=== PATIENT | female | born 1985 | race Two or more races ===

== ENCOUNTER 2020-05-29 15:24 | Outpatient (REF) | payer OTHER, SELFPAY | END 2020-05-29 15:25 | disposition home or self-care (01) | LOC: HO.LAB 15:24 | PROVIDERS: PCP Internal Medicine; Visit Provider Internal Medicine | DX: Z20.828 Contact with and (suspected) exposure to other viral communicable diseases (principal) | CPT/HCPCS: 36415; 87635 ==

== ENCOUNTER 2020-07-07 10:34 | Outpatient (RCR) | payer OTHER, SELFPAY | END 2020-07-16 14:54 | disposition home or self-care (01) | LOC: HO.WCC 10:34 | PROVIDERS: PCP Internal Medicine; Visit Provider Surgery | DX: T81.31XD Disruption of external operation (surgical) wound, not elsewhere classified, subsequent encounter (principal); Z87.891 Personal history of nicotine dependence | CPT/HCPCS: 99204 ==

== ENCOUNTER 2023-06-15 08:35 | Emergency (ER) | payer OTHER, SELFPAY ==
[2023-06-15 08:38] VITALS: BP 121/84; PULSE 85; RESP 18; TEMP 36.2; O2SAT 99; BMI 34.0
[2023-06-15 08:56] LABS: MANUAL DIFF FLAG NO
[2023-06-15 08:57] LABS: Basophils Absolute Auto 0.1 X10*3/uL (0.0-0.2); Basophils Percent Auto 0.7 % (0-2); Eosinophils Absolute Auto 0.3 X10*3/uL (0.0-0.4); Eosinophils Percent Auto 3.6 % (0-4); Hematocrit 42.4 % (37.0-47.0); Hemoglobin 14.1 g/dl (12.0-16.0); Imm Gran Pct Auto 1.1 % (0.0-0.4); Mean Corpuscular HGB Conc 33.3 g/dl (31.0-35.0); Mean Corpuscular Hemoglobin 31.6 pg (27.0-33.0); Mean Corpuscular Volume 95.1 fL (80.0-98.0); Mean Platelet Volume 9.2 fL (9.4-12.3); Monocytes Absolute Auto 0.7 X10*3/uL (0.1-1.2); Monocytes Percent Auto 8.1 % (2-11); Neutrophils Absolute Auto 5.9 x10*3/uL (2.0-8.3); Neutrophils Percent Auto 64.5 % (45-73); Platelet Count 334 X10*3/uL (160-400); Red Blood Count 4.46 X10*6/uL (4.20-5.50); Red Cell Distribution Width 13.8 % (11.0-16.0); White Blood Count 9.2 X10*3/uL (4.8-10.8)
[2023-06-15 09:16] LABS: Alanine Aminotransferase 22 U/L (0-31); Albumin Level 4.1 g/dL (3.5-5.0); Alkaline Phosphatase 77 U/L (39-117); Anion Gap 15 (12-20); Aspartate Amino Transferase 20 U/L (5-31); Bilirubin Total 0.3 mg/dL (0.0-1.0); Blood Urea Nitrogen 10 mg/dL (9-16); Calcium 9.5 mg/dL (8.4-10.2); Carbon Dioxide 21 mmol/L (22-29); Chloride 107 mmol/L (96-108); Creatinine Clr Calc Pharmacy 92.7; Estimated Glomerular Filt Rate > 60; Glucose Random 121 mg/dL (60-115); Potassium 4.3 mmol/L (3.3-5.1); Sodium 139 mmol/L (135-145); Total Protein 7.3 g/dL (6.5-8.0)
[2023-06-15 09:20] LABS: HCG Quantitative < 2 mIU/mL
[2023-06-15 10:13] VITALS: BP 110/66; PULSE 73; RESP 18; TEMP 36.8; O2SAT 99
--- NOTE | 2023-06-15 10:19 | ED.FEMALEGU ---
HPI - Female Genitourinary General Chief complaint: Vaginal Bleeding Stated complaint: vaginal bleeding Time Seen by Provider: 06/15/23 09:05 Source: patient Mode of arrival: ambulatory Limitations: no limitations History of Present Illness HPI Narrative: 37-year-old female who presents emergency department for evaluation of vaginal bleeding, lower abdominal pain and possible STD exposure. The patient states that she has not had a menstrual period in 5-6 years since she stop receiving Depo Provera-her periods never returned. She states that she had sex 3 days ago and the condom broke. She states that she has noticed vaginal spotting which she describes as red blood clots. Patient also is complaining of lower abdominal pain, she has not noticed a vaginal discharge she denied fever, chills. She has had nausea and vomiting but no diarrhea. She has had urinary frequency but no dysuria. Related Data Previous Rx's Medication Instructions Recorded acetaminophen 500 mg tablet 1,000 mg (2 x 500 mg) PO Q6H PRN 06/15/23 (Tylenol Extra Strength) fever or pain #20 tabs doxycycline hyclate 100 mg tablet 100 mg PO Q12H 14 days #28 tabs 06/15/23 ibuprofen 400 mg tablet 400 mg PO TID PRN fever or pain 06/15/23 #30 tabs metronidazole 500 mg tablet 500 mg PO Q12H 14 days #28 tabs 06/15/23 Allergies Allergy/AdvReac Type Severity Reaction Status Date / Time No Known Allergies Allergy Unverified 05/15/20 17:59 [No Known Allergies*] Review of Systems Review of Systems: Yes all other systems are reviewed and are negative FOR[facility]LY [facility], [facility]1983 Past Medical History FORMERLY [facility], [facility]–1983 Narrative: Past medical history: None. Surgical history: Breast implants, hemorrhoidectomy 3 months prior, ?tummy tuck ?. Social history: She does smoke cigarettes, she occasionally drinks alcohol, she does smoke marijuana. Medical History Acute hemorrhoid Hernia Kidney stones Social History Social History Alcohol intake: current Smoked in Last 30 Days: Yes Use of substances other than those prescribed or required for medical reasons: Yes Substance Use Type: Marijuana Substance Use Frequency: Occasionally Advance Directives: No Advance Directives Information Provided: No Physical Exam Vital Signs: Vital Signs: Last Vital Signs Temp 98.4 F 06/15/23 11:41 Pulse 82 06/15/23 11:41 Resp 18 06/15/23 11:41 BP 120/78 06/15/23 11:41 Pulse Ox 98 06/15/23 11:41 O2 Del Method Room Air 06/15/23 11:41 BMI result Body Mass Index 34.0 Vital signs were normal Exam: General: Awake, alert in no distress Head: Normocephalic, atraumatic EENT: PERRL, Lids normal, sclera normal, conjunctiva normal, nose normal , ears normal, throat without erythema or exudates Neck: Supple, no adenopathy, trachea midline and nontender Lung: breath sounds symmetric, no wheezing, rales or rhonchi Chest: symmetric movement, nontender Heart: regular rate and rhythm, normal S1, S2 no murmurs or rubs Abdomen: soft, non-tender, nondistended, normal bowel sounds Pelvic: Normal external vaginal exam, speculum exam revealed a thick whitish vaginal and cervical discharge, cervical os is closed, patient has moderate cervical motion tenderness and mild to moderate suprapubic and adnexal tenderness with palpation . There is no blood seen in the vagina or coming from the cervical os Back: no vertebral tenderness, no CVAT Extremities: no deformities, moves all extremities symmetrically Skin: no rashes, no lesion, normal color and warmth Neuro: Awake, alert, oriented, normal speech, cranial nerves intact, moves all extremities symmetrically Psych: Pleasant, cooperative Medications Administered Discontinued Medications Generic Name Dose Route Start Last Admin Trade Name Александрq PRN Reason Stop Dose Admin Ceftriaxone Sodium 500 mg/ 0 mg 06/15/23 11:14 06/15/23 11:40 Lidocaine HCl 1 ml IM 06/15/23 11:15 1 kit ONCE ONE Administration Medical Decision Making Medical Decision Making MDM Narrative: 37-year-old female with no significant past medical history use had no menses for 5-6 year presents emergency department for evaluation of vaginal spotting, vaginal discharge, nausea, vomiting and frequency, after having intercourse 3 days prior where the condom broke. Patient's vital signs were normal. Exam did reveal a vaginal and cervical discharge as well as significant cervical motion tenderness, adnexal and suprapubic tenderness. Following evaluation was ordered: CBC, BMP, urinalysis, quantitative beta-hCG, chlamydia/gonorrhea, Trichomonas, BV panel. 10:24 The patient's pelvic examination is consistent with pelvic inflammatory disease. Laboratory evaluation was unremarkable, quantitative beta-hCG was negative-the patient is not . Patient will be treated for pelvic inflammatory disease with ceftriaxone 500 mg IM mixed with lidocaine, doxycycline 100 mg q.12 hours times 14 days and Flagyl 500 mg q.12 hours times 14 days Patient was also given prescriptions for Tylenol and ibuprofen for pain. 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 She was given printed and verbal instructions and discharged home. Differential Diagnosis Differential Diagnoses: The differential diagnosis associated with the presentation includes Differential diagnosis includes was not limited to STD exposure, cervicitis, pelvic inflammatory disease, dysfunctional vaginal bleeding, urinary tract infection Lab Data MDM Lab Attestation statement: I reviewed the patient's lab results. My interpretation patient's laboratory evaluation as follows: CBC was normal. CMP revealed an elevated glucose of 121, LFTs were normal, quantitative beta hCG was below detectable limits. Patient's urinalysis positive for blood, microscopic revealed 0-2 RBCs, 0-5 WBCs, no bacteria 06/15/23 08:50 06/15/23 08:50 Labs: Lab Results 06/15/23 06/15/23 Range/Units 08:50 10:36 WBC 9.2 (4.8-10.8) X10*3/uL RBC 4.46 (4.20-5.50) X10*6/uL Hgb 14.1 (12.0-16.0) g/dl Hct 42.4 (37.0-47.0) % MCV 95.1 (80.0-98.0) fL MCH 31.6 (27.0-33.0) pg MCHC 33.3 (31.0-35.0) g/dl RDW 13.8 (11.0-16.0) % Plt Count 334 (160-400) X10*3/uL MPV 9.2 L (9.4-12.3) fL Immature Gran % (Auto) 1.1 H (0.0-0.4) % Neut % (Auto) 64.5 (45-73) % Lymph % (Auto) 22.0 (20-40) % [place] % (Auto) 8.1 (2-11) % Eos % (Auto) 3.6 (0-4) % Baso % (Auto) 0.7 (0-2) % Lymph # (Auto) 2.0 (1.2-4.9) X10*3/uL [place] # (Auto) 0.7 (0.1-1.2) X10*3/uL Eos # (Auto) 0.3 (0.0-0.4) X10*3/uL Baso # (Auto) 0.1 (0.0-0.2) X10*3/uL Abs Immat Gran (auto) 0.10 H (0.00-0.03) X10*3/uL Absolute Neuts (auto) 5.9 (2.0-8.3) x10*3/uL Absolute Nucleated RBC 0.000 (0.0-0.012) X10*3/uL Nucleated RBC % (auto) 0.0 (0.0-0.2) /100WBC Sodium 139 (135-145) mmol/L Potassium 4.3 (3.3-5.1) mmol/L Chloride 107 (96-108) mmol/L Carbon Dioxide 21 L (22-29) mmol/L Anion Gap 15 (12-20) BUN 10 (9-16) mg/dL Creatinine 0.82 (0.5-1.4) mg/dL Estim Creat Clear Calc 92.7 Estimated GFR > 60 Random Glucose 121 H (60-115) mg/dL Calcium 9.5 (8.4-10.2) mg/dL Total Bilirubin 0.3 (0.0-1.0) mg/dL AST 20 (5-31) U/L ALT 22 (0-31) U/L Alkaline Phosphatase 77 (39-117) U/L Total Protein 7.3 (6.5-8.0) g/dL Albumin 4.1 (3.5-5.0) g/dL Beta HCG, Quant < 2 mIU/mL Urine Color Yellow Urine Appearance Clear Urine pH 6.5 (5.0-9.0) Ur Specific [place] <= 1.005 (1.005-1.025) Urine Protein Negative (Neg-Trace) mg/dL Urine Glucose (UA) Negative (Negative) mg/dL Urine Ketones Negative (Negative) mg/dL Urine Blood Small (1+) H (Negative) Urine Nitrite Negative (Negative) Ur Leukocyte Esterase Negative (Negative) Urine RBC 0-2 (0-2) /HPF Urine WBC 0-5 (0-5) /HPF Ur Squamous Epith Cells 0-2 (0-2) /HPF Urine Bacteria None Seen (None Seen) Hyaline Casts 0-2 (0-2) /LPF Prescription Management I considered prescription management with: Pain Medication and Antibiotic Discharge Plan Discharge Clinical Impression: Vaginal bleeding, Acute pelvic inflammatory disease Patient Disposition: Home, Self-Care Additional Instructions: Pelvic inflammatory disease instructions: Your presentation and physical findings are consistent with pelvic inflammatory disease (PID). Approximately 30% of the time, pelvic inflammatory disease is caused by sexually transmitted diseases such as Trichomonas, gonorrhea or chlamydia. Approximately 70% of the time, pelvic inflammatory disease is caused by abnormal bacteria (anaerobic bacteria) in your vagina that can cause an infection Medications You received ceftriaxone 500 mg intramuscularly here in the emergency department Take doxycycline 100 mg, 1 pill twice a day for 14 days. Take metronidazole 500 mg, 1 pill twice a day for 14 days. These 3 antibiotics treat sexually transmitted diseases such as gonorrhea, chlamydia and Trichomonas as well as anaerobic bacteria that can cause pelvic inflammatory disease. Take ibuprofen 400 mg pills, 1 pills every 6 hours as needed for pain. Take Tylenol (acetaminophen) 500 mg pills, 2 pills every 4 to 6 hours as needed for pain. Follow-Up Follow-up with your gynecology in 10-14 days. Pending laboratory tests: The doctor that follows up will need to review the following results with you: Bacterial vaginosis testing Gonorrhea and chlamydia (cervical swab) Trichomonas testing You can also check these results on the patient portal. Return precautions: Please return to the emergency department if your symptoms get worse if your pain does not go away in 24-48 hours or if you develop any symptoms that are concerning to you. Prescriptions: New metronidazole 500 mg tablet 500 mg PO Q12H 14 Days Qty: 28 0RF acetaminophen [Tylenol Extra Strength] 500 mg tablet 1,000 mg PO Q6H PRN (Reason: fever or pain) Qty: 20 0RF ibuprofen 400 mg tablet 400 mg PO TID PRN (Reason: fever or pain) Qty: 30 0RF doxycycline hyclate 100 mg tablet 100 mg PO Q12H 14 Days Qty: 28 0RF Interventions: ED Discharge Assessment Last Done: 06/15/23 11:48 Discharge Date/Time: 06/15/23 11:48
[2023-06-15 10:46] LABS: Appearance Urine Clear; Color Urine Yellow; Glucose Urine UA Negative (Negative); Leukocyte Esterase Urine Negative (Negative); Nitrite Urine Negative (Negative); PH 6.5 (5.0-9.0); Specific Gravity - Urine <= 1.005 (1.005-1.025); UMIC TRIGGER UACC YES; Urine Blood Small (1+) (Negative); Urine Ketones Negative (Negative); Urine Protein Negative (Neg-Trace)
[2023-06-15 10:58] LABS: Bacteria Urine None Seen (None Seen); Hyaline Casts Urine 0-2 /LPF (0-2); RBC Urine 0-2 /HPF (0-2); Squamous Epithelial Cell Urine 0-2 /HPF (0-2); WBC Urine 0-5 /HPF (0-5)
[2023-06-15] MEDS: cefTRIAXone sodium 500 MG, Lidocaine HCl 1 % MPF 1 ML IM (11:40)
[2023-06-15 11:41] VITALS: BP 120/78; PULSE 82; RESP 18; TEMP 36.9; O2SAT 98
[2023-06-15 12:51] LABS: CT PCR NOT DETECTED (Not Detect.); NG PCR NOT DETECTED (Not Detect.)
[2023-06-16 13:48] LABS: BV Int Neg Control Negative (Negative); BV Int Pos Control Positive (Positive)
== END 2023-06-15 11:48 | disposition home or self-care (01) ==
PROVIDERS: Emergency Provider Emergency Medicine Emergency Medical Services; PCP Internal Medicine
DX: N73.9 Female pelvic inflammatory disease, unspecified (principal); N93.9 Abnormal uterine and vaginal bleeding, unspecified; R11.2 Nausea with vomiting, unspecified; R10.2 Pelvic and perineal pain; Z11.52 Encounter for screening for COVID-19; Z20.2 Contact with and (suspected) exposure to infections with a predominantly sexual mode of transmission; Z20.822 Contact with and (suspected) exposure to COVID-19; Z79.899 Other long term (current) drug therapy
CPT/HCPCS: 0353U; 36415; 80053; 81001; 84702; 85025; 87480; 87510; 87660; 96372; 99284; J0696

== ENCOUNTER 2023-07-07 08:31 | Emergency (ER) | payer OTHER, SELFPAY ==
[2023-07-07 08:38] VITALS: BP 138/100; PULSE 99; RESP 16; TEMP 35.9; O2SAT 99; BMI 32.0
--- NOTE | 2023-07-07 09:04 | ED_ITS ---
HPI - Female Genitourinary General Chief complaint: Urogenital-Female Stated complaint: Vaginal irritation Time Seen by Provider: 07/07/23 08:52 Source: patient Mode of arrival: ambulatory Limitations: no limitations History of Present Illness HPI Narrative: Patient is a 37-year-old female presenting to the emergency department with complaint vaginal itching burning for the past week. States that she used some receive cleanser as well as taking a bath and noted the irritation began after that. She attempted to treat her symptoms by using cornstarch which did not improve her symptoms. She denies any abnormal vaginal discharge or bleeding. States she has a small amount of white discharge which is normal for her. Also reports some dysuria. Denies fevers or abdominal pain. Denies concern for STIs. MD elicited complaint: genital itching Pertinent past history: PID Onset (ago): week(s) Location of symptoms: external genitalia Severity: moderate Female Urogenital Radiation: Non-Radiating Quality of pain: burning Consistency: constant Vaginal discharge: white (reports is normal amount) Vaginal bleeding: none Urinary symptoms: Dysuria Exacerbating factors: bathing Relieving factors: none Treatment prior to arrival: other (corn starch) Sexual activity: Yes Possible : unsure if Related Data Previous Rx's Medication Instructions Recorded acetaminophen 500 mg tablet 1,000 mg (2 x 500 mg) PO Q6H PRN 06/15/23 (Tylenol Extra Strength) fever or pain #20 tabs doxycycline hyclate 100 mg tablet 100 mg PO Q12H 14 days #28 tabs 06/15/23 ibuprofen 400 mg tablet 400 mg PO TID PRN fever or pain 06/15/23 #30 tabs metronidazole 500 mg tablet 500 mg PO Q12H 14 days #28 tabs 06/15/23 fluticasone propionate 0.05 % 1 appl topical Q12H PRN skin 07/07/23 topical cream irritation #15 grams Allergies Allergy/AdvReac Type Severity Reaction Status Date / Time No Known Allergies Allergy Unverified 05/15/20 17:59 [No Known Allergies*] Review of Systems Review of Systems: As per HPI. Yes all other systems are reviewed and are negative Constitutional: Constitutional: Reports as per HPI [facility] Past Medical History Medical History Acute hemorrhoid Hernia Kidney stones Social History Social History Alcohol intake: current Substance Use Type: Marijuana Advance Directives: No Physical Exam Vital Signs: Vital Signs: Last Vital Signs Temp 96.7 F L 07/07/23 08:38 Pulse 99 07/07/23 08:38 Resp 16 07/07/23 08:38 BP 138/100 H 07/07/23 08:38 Pulse Ox 99 07/07/23 08:38 O2 Del Method Room Air 07/07/23 08:38 BMI result Body Mass Index 32.0 Vital signs have been reviewed and appear to be correct. Blood pressure elevated. Heart rate normal. Respiratory rate normal. Temperature normal. Oxygen saturation normal. Const: General: cooperative, healthy appearing and no acute distress Orientation/consciousness: oriented to person, oriented to place, oriented to time and patient oriented x3 Limitations: no limitations HEENT: Head: Yes normocephalic and Yes atraumatic Ears: external ears normal General nose exam: Normal external nose present Face and sinus: Yes face symmetric Mouth: oropharynx normal and moist mucous membranes Throat: Yes uvula midline Eyes: Pupils: Equal, round and reactive pupils present Neck: Neck: Yes normal visual inspection and Yes supple Resp: Effort & Inspection: normal respiratory effort and able to speak in complete sentences Auscultation: clear to auscultation bilaterally Cardio: Rate: regular rate Rhythm: regular rhythm Heart sounds: S1 normal heart sound present and S2 normal heart sound present GI: Palpation (GI): Soft to palpation and nontender Auscultation: normoactive bowel sounds : Other: Exam chaperoned by ROSALBA Duarte. General: Yes no CVA tenderness External Female Exam: normal external appearance, normal appearance of the urethra, No erythema, externally tender and No external swelling Speculum Exam - Vagina: normal appearance of the vagina, normal palpation and normal vaginal discharge Speculum Exam - Cervix: normal appearance of the cervix, normal palpation and Cervical os closed Bimanual exam- vagina & uterus: normal palpation and normal palpation Back/Spine/Pelvis: Back: no CVA tenderness Skin: General skin exam: elasticity normal and turgor normal Neuro: General: oriented to person, oriented to place, oriented to time, patient oriented x3, moves all extremities, no focal motor deficits and CN's II- XI intact bilaterally Cranial nerves: Yes Equal, round and reactive pupils present Cognition (Neuro): normal cognition Extrem: General: Yes full ROM, Yes no pedal edema and Yes no calf tenderness Psych: Mental Status: mental status grossly normal Affect: normal affect Thought process: Normal thought process present Medical Decision Making Medical Decision Making [facility] Narrative: Patient is a 37-year-old female presenting to the emergency department with complaint vaginal itching burning for the past week. On exam patient is awake, A+Ox3, VS WNL, afebrile, normal neurological exam without focal deficits, physical exam findings as above. Given reported symptoms and physical exam findings, initial differential includes vulvovaginal candidiasis, STI, UTI. No evidence of infection on UA, negative, no trichomonas/yeast noted. Feel symptoms are likely vulvar dermatitis related to chemical irritation from using soaps, etc. Discussed with patient that she should avoid using any soaps or other products in the future as this can disrupt her skin sangeeta and pH balance. Will prescribe topical corticosteroid cream and instructed patient to discontinue using soap in her genital area. Advised patient to follow up with her DIRECTOR OUTCOMES if symptoms persist. Return precautions discussed. Patient will be contacted with any positive results of tests not yet resulted at today's visit. Patient verbalized understanding of and agreement with plan. Differential Diagnosis Differential Diagnoses: The differential diagnosis associated with the presentation includes As per [facility]. Lab Data [facility] Lab Attestation statement: I reviewed the patient's lab results. As per [facility]. Labs: Lab Results 07/07/23 Range/Units 09:41 Urine Color Yellow Urine Appearance Clear Urine pH 6.0 (5.0-9.0) Ur Specific [place] <= 1.005 (1.005-1.025) Urine Protein Negative (Neg-Trace) mg/dL Urine Glucose (UA) Negative (Negative) mg/dL Urine Ketones Negative (Negative) mg/dL Urine Blood Small (1+) H (Negative) Urine Nitrite Negative (Negative) Ur Leukocyte Esterase Negative (Negative) Urine RBC 0-2 (0-2) /HPF Urine WBC 0-5 (0-5) /HPF Ur Squamous Epith Cells 0-2 (0-2) /HPF Urine Bacteria None Seen (None Seen) Hyaline Casts 0-2 (0-2) /LPF Urine Test NEGATIVE (NEGATIVE) External Record Review External record reviewed: Inpatient record, Office record and Outpatient record Prescription Management I considered prescription management with: Other Discharge Plan Discharge Clinical Impression: Vulvar dermatitis Patient Disposition: Home, Self-Care Instructions: Dermatitis (ED) Additional Instructions: You were evaluated in the emergency department today for vaginal irritation. Your symptoms are likely related to soaps that you have been using, please do not use any soaps or other products in this area going forward. You are being prescribed topical cream which you can use 2 times daily as needed for symptoms. Please follow-up with your OBGYN for any ongoing symptoms. Return to the emergency department if you develop abnormal vaginal discharge, worsening pain, vaginal bleeding, fever, or any other concerning symptoms. Prescriptions: New fluticasone propionate 0.05 % cream 1 appl topical Q12H PRN (Reason: skin irritation) Qty: 15 0RF No Action metronidazole 500 mg tablet 500 mg PO Q12H 14 Days Qty: 28 0RF acetaminophen [Tylenol Extra Strength] 500 mg tablet 1,000 mg PO Q6H PRN (Reason: fever or pain) Qty: 20 0RF ibuprofen 400 mg tablet 400 mg PO TID PRN (Reason: fever or pain) Qty: 30 0RF doxycycline hyclate 100 mg tablet 100 mg PO Q12H 14 Days Qty: 28 0RF
--- NOTE | 2023-07-07 09:36 | PC.NURSE ---
patient a&ox3, this nurse assisted provider with internal vaginal exam, obtained swabs to be sent to the lab, pt in bathroom to give urine, will send all to lab when able.
[2023-07-07 09:55] LABS: Appearance Urine Clear; Color Urine Yellow; Glucose Urine UA Negative (Negative); Leukocyte Esterase Urine Negative (Negative); Nitrite Urine Negative (Negative); Specific Gravity - Urine <= 1.005 (1.005-1.025); UMIC TRIGGER UACC YES; Urine Blood Small (1+) (Negative); Urine Ketones Negative (Negative); Urine Protein Negative (Neg-Trace)
[2023-07-07 09:57] LABS: UPreg QC Valid YES; Urine Pregnancy NEGATIVE (NEGATIVE)
[2023-07-07 10:00] VITALS: BP 138/96; PULSE 968; RESP 16; TEMP 36.3; O2SAT 79
[2023-07-07 10:04] LABS: Bacteria Urine None Seen (None Seen); Hyaline Casts Urine 0-2 /LPF (0-2); RBC Urine 0-2 /HPF (0-2); Squamous Epithelial Cell Urine 0-2 /HPF (0-2); WBC Urine 0-5 /HPF (0-5)
[2023-07-07 16:46] LABS: CT PCR NOT DETECTED (Not Detect.); NG PCR NOT DETECTED (Not Detect.)
[2023-07-08 13:12] LABS: BV Int Neg Control Negative (Negative); BV Int Pos Control Positive (Positive)
== END 2023-07-07 10:43 | disposition home or self-care (01) ==
PROVIDERS: Registered Nurse Emergency; Emergency Provider Student in an Organized Health Care Education/Training Program; PCP Internal Medicine
DX: L29.2 Pruritus vulvae (principal); N76.0 Acute vaginitis; F12.90 Cannabis use, unspecified, uncomplicated
CPT/HCPCS: 0353U; 81001; 81025; 87480; 87510; 87660; 99283

== ENCOUNTER 2023-08-04 08:22 | Emergency (ER) | payer OTHER, SELFPAY ==
[2023-08-04 08:32] VITALS: BP 125/83; PULSE 88; RESP 18; TEMP 36.2; O2SAT 97; BMI 32.6
[2023-08-04 08:47] LABS: Appearance Urine Clear; Color Urine Yellow; Glucose Urine UA Negative (Negative); Leukocyte Esterase Urine Trace (Negative); Nitrite Urine Negative (Negative); PH 5.5 (5.0-9.0); Specific Gravity - Urine 1.025 (1.005-1.025); UMIC TRIGGER UACC YES; Urine Blood Large (3+) (Negative); Urine Ketones Negative (Negative); Urine Protein Trace mg/dL (Neg-Trace)
[2023-08-04 08:50] LABS: Bacteria Urine None Seen (None Seen); Hyaline Casts Urine 0-2 /LPF (0-2); RBC Urine >20 /HPF (0-2); WBC Urine 0-5 /HPF (0-5)
--- NOTE | 2023-08-04 09:25 | ED.GENADULT ---
HPI - General Adult General Chief complaint: General Medical Stated complaint: Vaginal irritation Time Seen by Provider: 08/04/23 09:23 Source: patient, RN notes reviewed and old records reviewed Mode of arrival: ambulatory History of Present Illness HPI narrative: 37-year-old female with a past medical history of hemorrhoids, hernia, renal stones, presenting to the ED complaining of vaginal irritation/skin is sensitivity. Patient admits she was recently seen and treated in our ED on 07/07 for similar symptoms, states symptoms are the same however not improved. Reports compliance with previously prescribed creams. Reports she does not have an OBGYN to follow-up with. Denies lesions, rash, discharge, vaginal bleeding, abdominal pain, flank pain, dysuria, hematuria. Reports possible concern for STI, unchanged/not new from previous visit Related Data Previous Rx's Medication Instructions Recorded acetaminophen 500 mg tablet 1,000 mg (2 x 500 mg) PO Q6H PRN 06/15/23 (Tylenol Extra Strength) fever or pain #20 tabs doxycycline hyclate 100 mg tablet 100 mg PO Q12H 14 days #28 tabs 06/15/23 ibuprofen 400 mg tablet 400 mg PO TID PRN fever or pain 06/15/23 #30 tabs metronidazole 500 mg tablet 500 mg PO Q12H 14 days #28 tabs 06/15/23 fluticasone propionate 0.05 % 1 appl topical BID PRN skin 07/07/23 topical cream irritation #30 grams fluticasone propionate 0.05 % 1 appl topical Q12H PRN skin 07/07/23 topical cream irritation #15 grams metronidazole 0.75 % (37.5 mg/5 1 appful vaginal DAILY 5 days #70 07/10/23 gram) vaginal gel grams metronidazole 500 mg tablet 500 mg PO BID 7 days #14 tabs 08/04/23 Allergies Allergy/AdvReac Type Severity Reaction Status Date / Time No Known Allergies Allergy Verified 08/04/23 08:35 [No Known Allergies*] Review of Systems Review of Systems: Constitutional: No Fever, No Chills, No Fatigue, No Malaise ENT/Mouth: No Ear Pain, No sore throat, No Rhinorrhea, No Swallowing Difficulty Eyes: No Eye Pain, No Swelling, No Redness Cardiovascular: No Chest Pain, No SOB Respiratory: No Cough, No Sputum, No Dyspnea Gastrointestinal: No Nausea, No Vomiting, No Diarrhea, No Constipation, No Abdominal pain Genitourinary: +vaginal irritation, No irregular bleeding, No Dysuria, No Urinary Frequency, No Hematuria, No Urinary Incontinence/retention, No Flank Pain, No Urinary Flow Changes, No Hesitancy Musculoskeletal: No joint pain, No Myalgias, No Joint Swelling Skin: No Skin Lesions, No rash Yes all other systems are reviewed and are negative Constitutional: Constitutional: Reports as per [facility] Past Medical History Attestation statement: The following information was validated with the patient. Source: old records reviewed Medical History Acute hemorrhoid Hernia Kidney stones Social History Social History Alcohol intake: current Substance Use Type: Marijuana Advance Directives: No Physical Exam ED Vital Signs: Vital Signs - 24 hr 08/04/23 08:32 Temperature 97.1 F Pulse Rate 88 Respiratory Rate 18 Blood Pressure 125/83 Pulse Oximetry 97 Oxygen Delivery Method Room Air BMI result Body Mass Index 32.6 Const General: cooperative, healthy appearing and no acute distress Orientation/consciousness: patient oriented x3 Limitations: no limitations HENMT Head: Yes normal to inspection and Yes atraumatic Ears: hearing grossly normal bilaterally General nose exam: Normal external nose present Face and sinus: Yes normal facial exam Eyes General: appearance normal, both eyes and all related structures EOM: EOMs intact bilaterally Neck Neck: Yes normal visual inspection and Yes no meningeal signs Resp Effort & Inspection: normal respiratory effort and no respiratory distress Cardio Rate: regular rate GI Inspection: Yes normal to inspection Palpation (GI): Soft to palpation, nontender, no guarding and not rigid Other: exam deferred by patient Skin Rashes: no rashes Wounds: no wounds Neuro General: patient oriented x3, tone normal and no meningeal signs Cranial nerves: Yes CN's II-XII intact bilaterally Gait exam (Neuro): Normal gait present Extrem General: Yes normal to inspection Course Course Course Narrative: -UA with blood and trace leuk esterase. Not infected. negative. Results discussed with patient including worrisome signs and symptoms and strict return precautions, and when to return to the emergency department. They verbalized understanding and feel safe for discharge at this time. Medical Decision Making Medical Decision Making [facility] Narrative: 37-year-old female with a past medical history of hemorrhoids, hernia, renal stones, presenting to the ED complaining of vaginal irritation/skin is sensitivity. On exam vital signs stable, NAD, nontoxic appearing. Patient deferred exam as full pelvic exam with swabs was performed less than 1 month ago. Concern for UTI vs vs STI vs candidiasis/dermatitis. Unlikely PID/TOA or torsion without pain and negative swabs. Low suspicion for renal stone/pyelo or appendicitis/diverticulitis Discussed with patient at length she really needs to follow-up with museum informatics specialist. Will refer her to [facility]. Bacteria vaginosis was positive from cultures performed on 07/07, patient was treated with topical metronidazole. With shared decision-making will treat with oral metronidazole S patient feels she started to get better however symptoms did not resolve, patient also requesting yeast infection treatment. Will give 1 time dose of Diflucan in the ED. Plan: UA, , CT NG in Urine Please refer to course for remaining clinical decision making, interpretation of labs/imaging results, and discussions with consultants and/or family members. Differential Diagnosis Differential Diagnoses: The differential diagnosis associated with the presentation includes As above Lab Data [facility] Lab Attestation statement: I reviewed the patient's lab results. Labs: Lab Results 08/04/23 Range/Units 08:41 Urine Color Yellow Urine Appearance Clear Urine pH 5.5 (5.0-9.0) Ur Specific [place] 1.025 (1.005-1.025) Urine Protein Trace (Neg-Trace) mg/dL Urine Glucose (UA) Negative (Negative) mg/dL Urine Ketones Negative (Negative) mg/dL Urine Blood Large (3+) H (Negative) Urine Nitrite Negative (Negative) Ur Leukocyte Esterase Trace H (Negative) Urine RBC >20 H (0-2) /HPF Urine WBC 0-5 (0-5) /HPF Ur Squamous Epith Cells 3-5 (0-2) /HPF Urine Bacteria None Seen (None Seen) Hyaline Casts 0-2 (0-2) /LPF Urine Test NEGATIVE (NEGATIVE) External Record Review External record reviewed: Inpatient record, Office record, Outpatient record, Prior outpatient labs, Prior outpatient radiology, Primary care record and Outside ED record Tests considered The following testing was considered but not selected: As above Prescription Management I considered prescription management with: Pain Medication and Antibiotic Discharge Plan Discharge Clinical Impression: Vaginal irritation Patient Disposition: Home, Self-Care Instructions: Vaginal Discharge (ED) Additional Instructions: Metronidazole will treat bacterial vaginosis please take as prescribed YOU NEED TO FOLLOW-UP WITH OBGYN. CALL TO MAKE AN APPOINTMENT If symptoms persist or worsen return to the emergency department Your also given 1 time dose treatment for a yeast infection today If you develop lesions, persistent or worsening pain, abdominal pain or back pain return to the ED Prescriptions: New metronidazole 500 mg tablet 500 mg PO BID 7 Days Qty: 14 0RF No Action metronidazole 500 mg tablet 500 mg PO Q12H 14 Days Qty: 28 0RF acetaminophen [Tylenol Extra Strength] 500 mg tablet 1,000 mg PO Q6H PRN (Reason: fever or pain) Qty: 20 0RF ibuprofen 400 mg tablet 400 mg PO TID PRN (Reason: fever or pain) Qty: 30 0RF doxycycline hyclate 100 mg tablet 100 mg PO Q12H 14 Days Qty: 28 0RF fluticasone propionate 0.05 % cream 1 appl topical Q12H PRN (Reason: skin irritation) Qty: 15 0RF fluticasone propionate 0.05 % cream 1 appl topical BID PRN (Reason: skin irritation) Qty: 30 0RF metronidazole 0.75 % (37.5mg/5 gram) gel 1 appful vaginal DAILY 5 Days Qty: 70 0RF Referrals: [facility] Women's Services [Provider Group]
[2023-08-04 09:54] LABS: UPreg QC Valid YES
[2023-08-04 09:56] LABS: Urine Pregnancy NEGATIVE (NEGATIVE)
[2023-08-04] MEDS: Fluconazole 150 MG TABLET PO (10:10)
[2023-08-04 17:08] LABS: CT PCR NOT DETECTED (Not Detect.); NG PCR NOT DETECTED (Not Detect.)
== END 2023-08-04 10:23 | disposition home or self-care (01) ==
PROVIDERS: Physician Assistant; Emergency Provider Emergency Medicine Emergency Medical Services; PCP Internal Medicine
DX: R10.2 Pelvic and perineal pain (principal)
CPT/HCPCS: 0353U; 81001; 81025; 99283

== ENCOUNTER 2023-08-12 13:21 | Outpatient (REF) | payer OTHER, SELFPAY ==
[2023-08-13 10:25] LABS: CT PCR NOT DETECTED (Not Detect.); NG PCR NOT DETECTED (Not Detect.)
[2023-08-14 11:46] LABS: BV Int Neg Control Negative (Negative); BV Int Pos Control Positive (Positive)
[2023-08-19 03:48] LABS: HPV mRNA E6/E7 rflx Not Detected (Not Detected)
== END 2023-08-12 13:22 | disposition home or self-care (01) ==
LOC: HO.LNP 13:21
PROVIDERS: PCP Internal Medicine; Visit Provider Advanced Practice Midwife
DX: Z20.2 Contact with and (suspected) exposure to infections with a predominantly sexual mode of transmission (principal); Z87.42 Personal history of other diseases of the female genital tract
CPT/HCPCS: 0353U; 87480; 87510; 87624; 87660; 88142; 99202

== ENCOUNTER 2023-08-12 13:21 | Outpatient (AMB) | payer OTHER, SELFPAY ==
--- NOTE | 2023-08-12 13:25 | A.OFFVIS_ITS ---
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 Railroad: Brake Repairer Railroad Present (Aidyn) Allergies No Known Allergies [No Known Allergies*] Allergy (Verified 08/12/23 13:30) Medication List - Last Reconciled 08/12/23 by Bibiana Rios CNM acetaminophen (Tylenol Extra Strength) 1,000 mg (2 x 500 mg) PO Q6H PRN doxycycline hyclate 100 mg PO Q12H 14 days fluticasone propionate 0.05% 1 appl topical Q12H PRN fluticasone propionate 0.05% 1 appl topical BID PRN ibuprofen 400 mg PO TID PRN norethindrone (contraceptive) mg PO paliperidone palmitate (Invega Sustenna) mg IM zolpidem 10 mg PO BEDTIME PRN Is last menstrual period known: No Post menopausal: No HPI ER follow up HPI Details Patient is scheduled here for ER follow-up. She was seen in the emergency room in May and July for varying issues with vaginal complaints. She was treated presumptively for pelvic inflammatory disease and also for bacterial vaginosis and also for yeast based on symptoms. Thorough review of the complete evaluations and history and workup and plans at each visit were reviewed. She wants to review everything that was done. She said the last medicine she took worked the metronidazole the strong tasting pills She is not having any symptoms now she is finally feeling better but she wants to get checked for every STD that did not get checked at the ER. She says she usually Melendez is is condoms unless something happens and it breaks or the jordy takes it off unbeknownst to her. States she does not have a drip molder and does not remember when she last had a Pap smear. She said she has not had a period in 6 years since she went on Depo and she got 3 shots. She is praying her period comes back because she wants to have a boy. She says she was sent to [facility] but they could not help her because it would take 10,000 dollars and she did not have it she does not even have a dollar. Her car broke down (or it is her mother's car and she has no transportation. She had an ultrasound done at [facility] this Tuesday on the that was ordered for drip molder follow-up but she is not sure how she is going to get back there to talk to them about the results she does have an appointment with her primary care provider in August at [facility] and does intend to keep that for that she is going to get transportation through [facility]. [facility] Medical History (Updated 08/12/23 @ 14:27 by Bibiana Rios CNM) Depression Acute hemorrhoid Hernia Kidney stones Surgical History (Updated 08/12/23 @ 13:34 by NEDA Garduno) Hx of breast augmentation H/O cosmetic surgery Hx of hemorrhoidectomy Family History (Updated 08/12/23 @ 13:35 by NEDA Garduno) Paternal Grandmother Breast cancer Maternal Grandfather Colon cancer Social History (Updated 08/12/23 @ 13:35 by NEDA Garduno) Alcohol intake: current Patient Tobacco Use Status: Current everyday Tobacco user Tobacco use type: Cigarette Cigarettes Per Day: 10 Substance Use Type: Marijuana Female Reproductive History Menstrual Age of Menarche: 14 control method: pills Total pregnancies: 4 Full term: 1 Number of Living Children: 1 Ab induced: 2 Ab spontaneous: 1 Physical Exam Vital Signs: Last Vital Signs BP 120/76 08/12/23 13:26 BMI result Body Mass Index 32.9 Const Other: Dark circles under patient's eyes noted Other: External exam within normal limits patient uses baby powder to absorb perspiration evidence of previous follicular cysts well-healed and none currently active. Vagina is pink slightly dry cervix multiparous long thick closed uterus midposition mobile nontender not enlarged at all adnexa not enlarged very good tone with Kegel. Assessment & Plan Assessment & Plan (1) Encounter for screening examination for sexually transmitted disease: Code(s): Z11.3 - Encounter for screening for infections with a predominantly sexual mode of transmission (2) Hx of abnormal cervical Pap smear: Comment: History of HPV. (Patient believes she got a from a shot- (discussed transmission.) Code(s): Z87.42 - Personal history of other diseases of the female genital tract (3) Follow-up exam after treatment: Code(s): Z09 - Encounter for follow-up examination after completed treatment for conditions other than malignant neoplasm Plan Reviewed the ER notes thoroughly reviewed that testing for STIs currently in 20[place] in this country includes testing for HIV hepatitis B hepatitis C syphilis via blood work, and vaginal testing includes gonorrhea chlamydia trichomoniasis as well as other agents such as Gardnerella and Reina which are not STDs. There are other kinds of bacteria as that can cause different infections but they are not routinely tested for here usually. She already knows that she has herpes and she was requesting a prescription for valacyclovir that she takes just when she thinks she is getting an outbreak she does have a little tingling around her clitoris now but no obvious symptoms. I showed her her anatomy with the mirror. Her vagina is slightly dry but we will await any testing. Nothing appeared acutely abnormal at all. I am ordering testing for the blood work for her and she can go to the lab and we will disclose results with her at the next visit She had an ultrasound done via the [facility] system this week I am recommending that she have either by telephone or video any follow-up visit that they wish to have with her to review those results when they are back but also signs so that that ultrasound can be sent here for us to review as well as her previous records including previous Pap smears. Additionally I am hoping it will include what ever vaccines she was given so that we can review that with her and review HPV in more detail. I also refilled her control pills for her norethindrone 0.35 mg that she is taking daily. She is getting some periodically cramping and she is very much hoping that her period Returns. Did inform her that we are not able to provide infertility services here. I did review the rest of her health and she feels she is doing the best she can she gets a shot of Invega for depression every week by a nurse that comes to her house. Reviewed doing her best to be in the best health she can be so that if her periods returned she can pursue getting . I did not address cigarette smoking today. Orders: Orders Hepatitis B Surface Antigen Today Z11.3 - Encounter for screening for infections with a predominantly sexual mode of transmission, Z87.42 - Personal history of other diseases of the female genital tract Hepatitis C Antibody Today Z11.3 - Encounter for screening for infections with a predominantly sexual mode of transmission, Z87.42 - Personal history of other diseases of the female genital tract Bacterial Vaginosis Panel Today Z20.2 - Contact with and (suspected) exposure to infections with a predominantly sexual mode of transmission HIV Ab/Ag Today Z11.3 - Encounter for screening for infections with a predominantly sexual mode of transmission, Z87.42 - Personal history of other diseases of the female genital tract Syphilis Screen Today Z11.3 - Encounter for screening for infections with a predominantly sexual mode of transmission, Z87.42 - Personal history of other diseases of the female genital tract CT NG by PCR Today Z20.2 - Contact with and (suspected) exposure to infections with a predominantly sexual mode of transmission Pap Smear Today Z87.42 - Personal history of other diseases of the female genital tract Medications: New norethindrone (contraceptive) 0.35 mg PO DAILY 84 tabs 4RF valacyclovir Take 1 pill for 3-5 days for symptoms of HSV outbreak, and save the rest for future outbreaks. 1,000 mg PO DAILY 30 tabs 1RF Coding Level of Care Code New Pt Level 3 (78790) Diagnoses Encounter for screening examination for sexually transmitted disease Z11.3 Hx of abnormal cervical Pap smear Z87.42 Follow-up exam after treatment Z09
[2023-08-12 13:26] VITALS: BP 120/76; BMI 32.9
== END 2023-08-12 14:40 | disposition home or self-care (01) ==
PROVIDERS: PCP Internal Medicine; Visit Provider Advanced Practice Midwife
DX: Z09 Encounter for follow-up examination after completed treatment for conditions other than malignant neoplasm (principal); Z11.3 Encounter for screening for infections with a predominantly sexual mode of transmission; Z87.42 Personal history of other diseases of the female genital tract
CPT/HCPCS: 99203

== ENCOUNTER 2023-08-12 14:29 | Outpatient (REF) | payer OTHER, SELFPAY | END 2023-08-12 14:30 | disposition home or self-care (01) | LOC: HO.LAB 14:29 | PROVIDERS: PCP Internal Medicine; Visit Provider Advanced Practice Midwife | DX: Z13.89 Encounter for screening for other disorder (principal) ==

== ENCOUNTER 2023-09-06 08:48 | Emergency (ER) | payer OTHER, SELFPAY ==
--- NOTE | ~2023-09-06 | CT_ITS ---
EXAMINATION: CT ABDOMEN AND PELVIS WITHOUT CONTRAST CLINICAL INFORMATION: Back pain and hematuria COMPARISON: None available. TECHNIQUE: Multidetector volumetric imaging was performed from the superior aspect of the liver through the pubic symphysis. Sagittal and coronal reformatted images were obtained on the technologist's workstation. This CT examination was performed using dose optimization techniques as appropriate, variously including the following: *Automated exposure control *Adjustment of mA and/or kV according to patient size (this includes techniques or standardized protocols for targeted exams where dose is matched to indication/reason for exam; i.e. extremities or head) *Use of iterative reconstruction technique DLP: 571 mGy-cm FINDINGS: LUNG BASES: Bilateral breast prostheses are present. The visualized lung bases are unremarkable. LIVER, GALLBLADDER, AND BILIARY TREE: The liver is enlarged at 18 cm in greatest length and demonstrates decreased attenuation consistent with hepatic steatosis. No focal hepatic lesion or biliary ductal dilatation is present. The gallbladder is unremarkable with no evidence of radiopaque gallstones, gallbladder wall thickening, or obvious pericholecystic inflammatory changes. PANCREAS: Unremarkable. SPLEEN: Unremarkable. ADRENAL GLANDS: Unremarkable. KIDNEYS AND URETERS: The kidneys are normal in size, shape, and attenuation. There is a large 1.1 cm nonobstructing left upper pole renal calculus which measures 1500 Hounsfield units and is 5 cm from the posterior axillary line. 2 other punctate calculi are seen in the left kidney. 2 tiny punctate nonobstructing calcifications are seen in the right kidney. Of note, there is left-sided pelvocaliectasis with dilated ureter down to the level of a obstructing stone in the mid to proximal ureter measuring 4 mm. No right-sided hydronephrosis, hydroureter, or right-sided ureteral calculi seen. No perinephric stranding. BLADDER: Empty but unremarkable GASTROINTESTINAL TRACT: The small and large bowel are unremarkable aside from colonic diverticulosis without diverticulitis. The appendix is unremarkable. ABDOMINAL WALL: No significant hernia is appreciated. Is a tiny periumbilical hernia seen containing only fat. LYMPH NODES: Normal. VASCULAR: Unremarkable. PELVIC VISCERA: The uterus and adnexa are unremarkable. OSSEOUS STRUCTURES: Unremarkable. CT/CT abdomen pelvis wo IV con IMPRESSION: 1. Obstructing 4 mm left mid to proximal ureteral calculus with associated left-sided pelvocaliectasis. 2. Bilateral nonobstructing renal calculi with a single quite large 1.1 cm stone on the left. 3. Enlarged fatty liver. 4. Colonic diverticulosis without diverticulitis. Fleischner guidelines were followed.
[2023-09-06 08:58] VITALS: BP 130/78; PULSE 72; O2SAT 99
[2023-09-06 09:08] VITALS: BP 127/73; PULSE 72; RESP 19; TEMP 36.6; O2SAT 98; BMI 32.0
[2023-09-06 09:57] LABS: MANUAL DIFF FLAG NO
[2023-09-06 09:59] LABS: Basophils Absolute Auto 0.1 X10*3/uL (0.0-0.2); Basophils Percent Auto 0.5 % (0-2); Eosinophils Absolute Auto 0.3 X10*3/uL (0.0-0.4); Hematocrit 44.2 % (37.0-47.0); Hemoglobin 14.4 g/dl (12.0-16.0); Imm Gran Abs Auto 0.07 X10*3/uL (0.00-0.03); Imm Gran Pct Auto 0.6 % (0.0-0.4); Lymphocytes Absolute Auto 1.8 X10*3/uL (1.2-4.9); Lymphocytes Percent Auto 16.2 % (20-40); Mean Corpuscular HGB Conc 32.6 g/dl (31.0-35.0); Mean Corpuscular Hemoglobin 30.8 pg (27.0-33.0); Mean Corpuscular Volume 94.6 fL (80.0-98.0); Mean Platelet Volume 9.1 fL (9.4-12.3); Monocytes Absolute Auto 0.9 X10*3/uL (0.1-1.2); Monocytes Percent Auto 8.2 % (2-11); Neutrophils Absolute Auto 7.7 x10*3/uL (2.0-8.3); Neutrophils Percent Auto 71.5 % (45-73); Platelet Count 343 X10*3/uL (160-400); Red Blood Count 4.67 X10*6/uL (4.20-5.50); Red Cell Distribution Width 14.2 % (11.0-16.0); White Blood Count 10.8 X10*3/uL (4.8-10.8)
[2023-09-06 10:02] LABS: Appearance Urine Cloudy; Color Urine Yellow; Glucose Urine UA Negative (Negative); Leukocyte Esterase Urine Small (1+) (Negative); Nitrite Urine Negative (Negative); PH 5.5 (5.0-9.0); UMIC TRIGGER UACC YES; Urine Blood Large (3+) (Negative); Urine Ketones Trace mg/dL (Negative); Urine Protein 30 (1+) mg/dL (Neg-Trace)
[2023-09-06 10:04] LABS: UPreg QC Valid YES; Urine Pregnancy NEGATIVE (NEGATIVE)
[2023-09-06 10:15] LABS: Bacteria Urine None Seen (None Seen); RBC Urine >20 /HPF (0-2); UACC Culture Trigger YES; WBC Urine 0-5 /HPF (0-5)
[2023-09-06 10:20] LABS: Alanine Aminotransferase 36 U/L (0-31); Albumin Level 4.3 g/dL (3.5-5.0); Alkaline Phosphatase 70 U/L (39-117); Anion Gap 10 (12-20); Aspartate Amino Transferase 29 U/L (5-31); Bilirubin Direct 0.1 mg/dL (0.0-0.5); Bilirubin Total 0.3 mg/dL (0.0-1.0); Blood Urea Nitrogen 9 mg/dL (9-16); Calcium 9.7 mg/dL (8.4-10.2); Carbon Dioxide 27 mmol/L (22-29); Chloride 106 mmol/L (96-108); Creatinine Clr Calc Pharmacy 92.3; Estimated Glomerular Filt Rate > 60; Glucose Random 97 mg/dL (60-115); Lipase 18 U/L (8-78); Potassium 4.5 mmol/L (3.3-5.1); Sodium 138 mmol/L (135-145); Total Protein 7.6 g/dL (6.5-8.0)
[2023-09-06] MEDS: Ketorolac Tromethamine 30 MG/ML VIAL IM (13:06)
--- NOTE | 2023-09-06 13:07 | PC.NURSE ---
medicated with IM toradol for abd and back pain
--- NOTE | 2023-09-06 14:31 | ED_ITS ---
HPI - General Adult General Chief complaint: Abdominal Pain Stated complaint: STOMACH/LOW BACK PAIN SINCE LAST NIGHT PER EMS Time Seen by Provider: 09/06/23 15:05 Source: patient Mode of arrival: ambulatory Limitations: no limitations History of Present Illness HPI narrative: 37 yold female with pmh of kidney stones presents to the ED left flank pain with referred with abdominal pain. Patient states mild hematuria. patient denies any recent trauma. Related Data Home Medications Medication Instructions Recorded Confirmed paliperidone palmitate 234 mg/1.5 mg IM 08/12/23 08/12/23 mL intramuscular syringe (Invega Sustenna) zolpidem 10 mg tablet 10 mg PO BEDTIME PRN 08/12/23 08/12/23 Previous Rx's Medication Instructions Recorded acetaminophen 500 mg tablet 1,000 mg (2 x 500 mg) PO Q6H PRN 06/15/23 (Tylenol Extra Strength) fever or pain #20 tabs doxycycline hyclate 100 mg tablet 100 mg PO Q12H 14 days #28 tabs 06/15/23 ibuprofen 400 mg tablet 400 mg PO TID PRN fever or pain 06/15/23 #30 tabs fluticasone propionate 0.05 % 1 appl topical BID PRN skin 07/07/23 topical cream irritation #30 grams fluticasone propionate 0.05 % 1 appl topical Q12H PRN skin 07/07/23 topical cream irritation #15 grams norethindrone (contraceptive) 0.35 0.35 mg PO DAILY #84 tabs 08/12/23 mg tablet valacyclovir 1 gram tablet 1,000 mg PO DAILY #30 tabs 08/12/23 metronidazole 500 mg tablet 500 mg PO BID 7 days #14 tabs 08/24/23 cefuroxime axetil 250 mg tablet 250 mg PO Q12H 7 days #14 tabs 09/06/23 ketorolac 10 mg tablet 10 mg PO Q6H PRN pain 5 days #20 09/06/23 tabs prednisone 20 mg tablet 40 mg (2 x 20 mg) PO DAILY 5 days 09/06/23 #10 tabs tamsulosin 0.4 mg capsule (Flomax) 0.4 mg PO DAILY 7 days #7 caps 09/06/23 Allergies Allergy/AdvReac Type Severity Reaction Status Date / Time No Known Allergies Allergy Verified 09/06/23 09:08 [No Known Allergies*] Review of Systems 2 Review of Systems: LEft flank/back pain Yes all other systems are reviewed and are negative [facility] Past Medical History Onset Date is defined in the Problem List Problems that require an onset date and time if occurred within 24 hrs of arrival to the ED Aortic Dissection and Rupture; Neurologic impairment; Cardiopulmonary Arrest; Endotracheal Intubation; Insertion or Replacement of Mechanical Circulatory Assist Device Medical History (Updated 09/07/23 @ 00:00 by Ramone Fairbanks) Depression Acute hemorrhoid Hernia Kidney stones Surgical History (Updated 08/12/23 @ 13:34 by NEDA Garduno) Hx of breast augmentation H/O cosmetic surgery Hx of hemorrhoidectomy Family History Family History (Updated 08/12/23 @ 13:35 by NEDA Garduno) Paternal Grandmother Breast cancer Maternal Grandfather Colon cancer Social History Social History (Updated 08/12/23 @ 13:35 by NEDA Garduno) Alcohol intake: current Patient Tobacco Use Status: Current everyday Tobacco user Tobacco use type: Cigarette Cigarettes Per Day: 10 Substance Use Type: Marijuana Advance Directives: No Physical Exam ED Vital Signs: Vital Signs - 24 hr 09/06/23 09:08 Temperature 98 F Pulse Rate 72 Respiratory Rate 19 Blood Pressure 127/73 Pulse Oximetry 98 Oxygen Delivery Method Room Air BMI result Body Mass Index 32.0 Const General: cooperative, healthy appearing, comfortable, no acute distress, well developed, alert and awake Orientation/consciousness: oriented to person, oriented to place, oriented to time and patient oriented x3 HENMT Head: Yes normal to inspection, Yes No palpable skull fracture present, Yes normocephalic and Yes atraumatic Eyes General: appearance normal, both eyes and all related structures Neck Neck: Yes normal visual inspection, Yes full ROM, Yes no lymphadenopathy, Yes no meningeal signs, Yes trachea midline, Yes supple, No anterior neck swelling and No tender Chest Chest palpation & inspection: normal inspection of the chest and normal palpation of entire chest wall Resp Effort & Inspection: normal respiratory effort and able to speak in complete sentences Cardio Jugular venous distension: no JVD Heart sounds: S1 normal heart sound present and S2 normal heart sound present GI Inspection: Yes normal to inspection Palpation (GI): Soft to palpation, not firm, Tenderness to palpation present (GI) in the LLQ, no guarding and not rigid General: Yes CVA tenderness (left flank pain) Back/Spine/Pelvis Back: CVA tenderness (left flank pain) Skin General skin exam: no rashes or lesions noted, elasticity normal and turgor normal Neuro General: oriented to person, oriented to place, oriented to time, patient oriented x3, gait normal, tone normal, moves all extremities, Normal light touch and pain sensation, no meningeal signs, no focal motor deficits, CN's II-XI intact bilaterally and normal sensation to monofilament Extrem General: Yes normal to inspection and Yes full ROM Psych Appearance: grossly normal and well kempt Course Course Course Narrative: 2:00pm: RME: Patient re-evaluated at triage. Patient given Toradol for back pain. Patient has hematuria. Patient was sent for CT scan to rule out kidney stones. 3:05pm: Patient CT scan shows obstructing 4mm ureteral calculus without hydronephrosis. Patient pain resolved with toradol. 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 patient can't wait. Patient discharged with pain meds, flomax, cefuroxime, and informed to follow up with [facility]ology. Medications Administered Discontinued Medications Generic Name Dose Route Start Last Admin Trade Name Freq PRN Reason Stop Dose Admin Ketorolac Tromethamine 30 mg 09/06/23 13:01 09/06/23 13:06 Ketorolac Tromethamine 30 Mg/Ml Vial IM 09/06/23 13:02 30 mg ONCE ONE Administration Medical Decision Making Medical Decision Making [facility] Narrative: 37 yold female with pmh of kidney stones presents to the ED for left flank pain. Patient pain improved with toradol. Kidney funciton normal. No elevated WBC. CT scan shows Kidney stones. patient dishcarged with pain meds, cefuroxime, and flomax. patient explained worrisome signs. Also she was informed to l follow up with [facility]ology Differential Diagnosis Differential Diagnoses: The differential diagnosis associated with the presentation includes (Pyelonephritis, kidney stones, UTI) Admission/Observation Consideration of admission/observation: Escalation of care including admission/observation considered Lab Data [facility] Lab Attestation statement: I reviewed the patient's lab results. 09/06/23 09:53 09/06/23 09:53 Labs: Lab Results 09/06/23 09/06/23 Range/Units 09:51 09:53 WBC 10.8 (4.8-10.8) X10*3/uL RBC 4.67 (4.20-5.50) X10*6/uL Hgb 14.4 (12.0-16.0) g/dl Hct 44.2 (37.0-47.0) % MCV 94.6 (80.0-98.0) fL MCH 30.8 (27.0-33.0) pg MCHC 32.6 (31.0-35.0) g/dl RDW 14.2 (11.0-16.0) % Plt Count 343 (160-400) X10*3/uL MPV 9.1 L (9.4-12.3) fL Immature Gran % (Auto) 0.6 H (0.0-0.4) % Neut % (Auto) 71.5 (45-73) % Lymph % (Auto) 16.2 L (20-40) % [place] % (Auto) 8.2 (2-11) % Eos % (Auto) 3.0 (0-4) % Baso % (Auto) 0.5 (0-2) % Lymph # (Auto) 1.8 (1.2-4.9) X10*3/uL [place] # (Auto) 0.9 (0.1-1.2) X10*3/uL Eos # (Auto) 0.3 (0.0-0.4) X10*3/uL Baso # (Auto) 0.1 (0.0-0.2) X10*3/uL Abs Immat Gran (auto) 0.07 H (0.00-0.03) X10*3/uL Absolute Neuts (auto) 7.7 (2.0-8.3) x10*3/uL Absolute Nucleated RBC 0.000 (0.0-0.012) X10*3/uL Nucleated RBC % (auto) 0.0 (0.0-0.2) /100WBC Sodium 138 (135-145) mmol/L Potassium 4.5 (3.3-5.1) mmol/L Chloride 106 (96-108) mmol/L Carbon Dioxide 27 (22-29) mmol/L Anion Gap 10 L (12-20) BUN 9 (9-16) mg/dL Creatinine 0.83 (0.5-1.4) mg/dL Estim Creat Clear Calc 92.3 Estimated GFR > 60 Random Glucose 97 (60-115) mg/dL Calcium 9.7 (8.4-10.2) mg/dL Total Bilirubin 0.3 (0.0-1.0) mg/dL Direct Bilirubin 0.1 (0.0-0.5) mg/dL AST 29 (5-31) U/L ALT 36 H (0-31) U/L Alkaline Phosphatase 70 (39-117) U/L Total Protein 7.6 (6.5-8.0) g/dL Albumin 4.3 (3.5-5.0) g/dL Lipase 18 (8-78) U/L Urine Color Yellow Urine Appearance Cloudy Urine pH 5.5 (5.0-9.0) Ur Specific [place] 1.020 (1.005-1.025) Urine Protein 30 (1+) H (Neg-Trace) mg/dL Urine Glucose (UA) Negative (Negative) mg/dL Urine Ketones Trace (Negative) mg/dL Urine Blood Large (3+) H (Negative) Urine Nitrite Negative (Negative) Ur Leukocyte Esterase Small (1+) H (Negative) Urine RBC >20 H (0-2) /HPF Urine WBC 0-5 (0-5) /HPF Ur Squamous Epith Cells 11-20 (0-2) /HPF Urine Bacteria None Seen (None Seen) Hyaline Casts 3-5 (0-2) /LPF Urine Test NEGATIVE (NEGATIVE) Independent Interpretation I performed an independent interpretation of an: CT Scan Radiology Impression Discussion of test interpretation with radiology: I have reviewed the radiologist's reading. External Record Review External record reviewed: Other (prior visits) Prescription Management I considered prescription management with: Pain Medication and Antibiotic Discharge Plan Discharge Clinical Impression: Calculus of kidney Patient Disposition: Home, Self-Care Instructions: Kidney Stones (ED), Renal Colic (ED) Additional Instructions: Recommend follow-up with urologist. Return to the ED immediately for worsening abdominal pain, flank pain, back pain, fever, chills, nausea, vomiting, hematuria, dysuria, or any other concerning symptoms. Do not take any other NSAIDs with ketorolac. Prescriptions: New prednisone 20 mg tablet 40 mg PO DAILY 5 Days Qty: 10 0RF tamsulosin [Flomax] 0.4 mg capsule 0.4 mg PO DAILY 7 Days Qty: 7 0RF ketorolac 10 mg tablet 10 mg PO Q6H PRN (Reason: pain) 5 Days Qty: 20 0RF Rx Instructions: received 30MG IM in the ED cefuroxime axetil 250 mg tablet 250 mg PO Q12H 7 Days Qty: 14 0RF No Action metronidazole 500 mg tablet 500 mg PO BID 7 Days Qty: 14 0RF acetaminophen [Tylenol Extra Strength] 500 mg tablet 1,000 mg PO Q6H PRN (Reason: fever or pain) Qty: 20 0RF ibuprofen 400 mg tablet 400 mg PO TID PRN (Reason: fever or pain) Qty: 30 0RF doxycycline hyclate 100 mg tablet 100 mg PO Q12H 14 Days Qty: 28 0RF fluticasone propionate 0.05 % cream 1 appl topical Q12H PRN (Reason: skin irritation) Qty: 15 0RF fluticasone propionate 0.05 % cream 1 appl topical BID PRN (Reason: skin irritation) Qty: 30 0RF zolpidem 10 mg tablet 10 mg PO BEDTIME PRN Invega Sustenna 234 mg/1.5 mL syringe IM norethindrone (contraceptive) 0.35 mg tablet 0.35 mg PO DAILY Qty: 84 4RF valacyclovir 1 gram tablet 1,000 mg PO DAILY Qty: 30 1RF Rx Instructions: Take 1 pill for 3-5 days for symptoms of HSV outbreak, and save the rest for future outbreaks. Referrals: [facility] [place] Urology Services [Provider Group] (Left ureteral stone) Stand Alone Forms: Work/School Release Interventions: ED Discharge Assessment Last Done: 09/06/23 15:14 Discharge Date/Time: 09/06/23 15:14 Print Language: Romanian
== END 2023-09-06 15:14 | disposition home or self-care (01) ==
PROVIDERS: Emergency Provider Student in an Organized Health Care Education/Training Program
DX: N20.0 Calculus of kidney (principal); R10.9 Unspecified abdominal pain; Z79.899 Other long term (current) drug therapy
CPT/HCPCS: 36415; 74176; 80048; 80076; 81001; 81003; 81025; 83690; 85025; 87086; 96372; 99283; 99284; J1885

== ENCOUNTER 2024-01-04 08:42 | Emergency (ER) | payer OTHER, SELFPAY ==
--- NOTE | ~2024-01-04 | CT_ITS ---
EXAMINATION: CT CERVICAL SPINE WITHOUT CONTRAST CLINICAL INFORMATION: Injury. Pain. COMPARISON: None available. TECHNIQUE: Axial images through the cervical spine without IV contrast. Sagittal and coronal reconstructions on the technologist workstation. This CT examination was performed using dose optimization techniques as appropriate, variously including the following: *Automated exposure control *Adjustment of mA and/or kV according to patient size (this includes techniques or standardized protocols for targeted exams where dose is matched to indication/reason for exam; i.e. extremities or head) *Use of iterative reconstruction technique DLP: 453 mGy-cm FINDINGS: Bone alignment is normal. No fracture or dislocation. Normal disc spaces. Normal prevertebral soft tissues. Lung apices are clear. CT/CT cervical spine wo IV con IMPRESSION: Unremarkable examination. Fleischner guidelines were followed.
--- NOTE | ~2024-01-04 | CT_ITS ---
EXAMINATION: CT HEAD WITHOUT CONTRAST CLINICAL INFORMATION: Head injury. Pain. COMPARISON: None available. TECHNIQUE: Contiguous axial imaging was performed from the skull base to vertex without intravenous administration of contrast. This CT examination was performed using dose optimization techniques as appropriate, variously including the following: *Automated exposure control *Adjustment of mA and/or kV according to patient size (this includes techniques or standardized protocols for targeted exams where dose is matched to indication/reason for exam; i.e. extremities or head) *Use of iterative reconstruction technique DLP: 6-8 mGy-cm FINDINGS: There is no evidence for an extra-axial collection. There is no evidence for intra-or extra-axial hemorrhage. The ventricles and extra-axial CSF spaces are appropriate. Butterfield-white matter differentiation is normal. No mass, mass effect or infarct is seen. Review of bone windows is normal. No skull fracture. Visualized paranasal sinuses mastoid air cells and middle ears are clear. CT/CT head/brain wo IV con IMPRESSION: Unremarkable exam.
[2024-01-04 09:02] VITALS: BP 126/89; PULSE 97; RESP 18; TEMP 36.2; O2SAT 96; BMI 32.4
--- NOTE | 2024-01-04 10:08 | ECG_ITS ---
Test Reason : cp Blood Pressure : / mmHG Vent. Rate : 074 BPM Atrial Rate : 074 BPM P-R Int : 168 ms QRS Dur : 076 ms QT Int : 366 ms P-R-T Axes : 064 012 024 degrees QTc Int : 406 ms Normal sinus rhythm with sinus arrhythmia Normal ECG No previous ECGs available Referred By: Generic ED Physician Electronically Signed By:Keenan Fernandez
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
[2024-01-04] MEDS: Ketorolac Tromethamine 15 MG/ML VIAL IM (11:21)
[2024-01-04] MEDS: Cyclobenzaprine HCl 5 MG TABLET PO (11:21)
[2024-01-04 12:17] VITALS: BP 126/89; PULSE 97; RESP 18; TEMP 36.2; O2SAT 96
== END 2024-01-04 12:19 | disposition home or self-care (01) ==
PROVIDERS: Emergency Provider Emergency Medicine
DX: S13.4XXA Sprain of ligaments of cervical spine, initial encounter (principal); R51.9 Headache, unspecified; R07.89 Other chest pain; I49.9 Cardiac arrhythmia, unspecified; V43.52XA Car driver injured in collision with other type car in traffic accident, initial encounter; Y93.9 Activity, unspecified; Y92.410 Unspecified street and highway as the place of occurrence of the external cause; Y99.8 Other external cause status; Z79.899 Other long term (current) drug therapy
CPT/HCPCS: 70450; 72125; 93005; 96372; 99284; J1885

== ENCOUNTER → 2024-01-04 10:08 | Outpatient (BNV) | payer OTHER, SELFPAY | PROVIDERS: Emergency Provider Emergency Medicine; Visit Provider Internal Medicine Cardiovascular Disease | DX: R07.9 Chest pain, unspecified (principal) | CPT/HCPCS: 93010 ==

== ENCOUNTER 2024-01-30 10:00 | Outpatient (RCR) | payer OTHER, SELFPAY ==
[2024-01-17 12:50] VITALS: BP 125/75
== END 2024-02-02 13:34 | disposition home or self-care (01) ==
LOC: HO.PT 10:00
PROVIDERS: Visit Provider Nurse Practitioner Family
DX: M54.50 Low back pain, unspecified (principal); M54.2 Cervicalgia
CPT/HCPCS: 97014; 97110; 97140; 97161